=== PATIENT | female | born 1980 | race Caucasian/White ===

== ENCOUNTER 2024-12-16 09:48 | Emergency (ER) | payer OTHER, SELFPAY ==
[2024-12-16 09:49] VITALS: BP 124/82
[2024-12-16 10:04] LABS: % Eosinophils 8.8 % (0-6); % Immature Granulocytes 0.3 % (0-0.5); % Lymphocytes 17.4 % (20.5-51.1); % Monocytes 7.6 % (1.7-9.3); % Neutrophils 64.9 % (42.2-75.2); Absolute Basophils 0.1 10^3/uL (0-0.2); Absolute Eosinophils 0.7 10^3/uL (0-0.7); Absolute Lymphocytes 1.3 10^3/uL (1.2-3.4); Absolute Monocytes 0.6 10^3/uL (0.1-0.6); Absolute Neutrophils 4.8 10^3/uL (1.4-6.5); Hematocrit 40.6 % (37.0-47.0); Hemoglobin 13.6 g/dL (12.0-16.0); Mean Corp Hgb Conc. 33.5 g/dL (33.0-37.0); Mean Corpuscular Hgb 30.8 pg (27.0-31.0); Mean Corpuscular Volume 91.9 fL (81.0-99.0); Mean Platelet Volume 9.7 fL (7.4-10.4); Nucleated Red Blood Cells % 0 %; Platelet Count 200 10^3/uL (130-400); Red Blood Cell Count 4.42 10^6/uL (4.20-5.40); Red Cell Dist. Width 12.4 % (11.5-14.5); White Blood Cell Count 7.4 10^3/uL (4.8-10.8)
[2024-12-16 10:18] LABS: ALT (SGPT) 14 U/L (0-35); AST (SGOT) 20 U/L (14-36); Albumin 4.4 g/dl (3.5-5.0); Alkaline Phosphatase 38 U/L (38-126); Blood Urea Nitrogen 9 mg/dl (7-17); Calcium 8.9 mg/dl (8.4-10.2); Carbon Dioxide 25 mmol/L (22-30); Chloride 110 mmol/L (98-107); Glucose 95 mg/dl (70-99); Lipase 68 U/L (23-300); Potassium 4.4 mmol/L (3.5-5.1); Sodium 143 mmol/L (135-145); Total Bilirubin 0.4 mg/dl (0.2-1.3); Total Protein 6.8 g/dl (6.3-8.2); eGFR > 60.00
[2024-12-16 10:22] LABS: HCG, Serum Qualitative Screen Negative
[2024-12-16 11:07] VITALS: BMI 17.4
[2024-12-16] MEDS: TORADOL 30 MG IV (11:13)
[2024-12-16] MEDS: OMNIPAQUE 50 ML PO (11:13)
--- NOTE | 2024-12-16 11:19 | ED.GENMED ---
History of Present Illness
General
Chief Complaint: Abdominal Pain
Source: patient
Time Seen by Provider: 12/16/24 10:57
History of Present Illness
History of Present Illness:
44-year-old female with past medical history of hypertension, anxiety/depression, previous anorexia presenting to the emergency department for evaluation of left lower quadrant abdominal pain that woke her up from sleep this morning described to be
a constant aching/cramping sensation, nonradiating, 9 out of 10, unrelieved with a heating pad. Patient states that she has not had a bowel movement for a couple of days which is not atypical for her but is not sure if this is the reason for her
pain. She does note associated mild nausea. She is otherwise denying any other symptoms including fevers, chills, rigors, urinary symptoms, back or flank pain, vaginal bleeding or discharge. She does note a history of previous cholecystectomy but
no other surgical abdominal history. Last menstrual period was within the last 2 weeks. No known history of ovarian cysts. Social history noncontributory.
Past History
Past History
ED Past Medical History: Psychiatric (eating habits have been an issue, hx anorexia. Mood disorder: Lamictal and Celexa. Anxiety, depression) and Other (Migraines, past 9 years. had botox injection)
ED Past Surgical History: Gynecological and Other (Breast cyst)
Social History
Tobacco: Non-smoker
Alcohol: Occasional
Drug: None
Personal: Single
Living: other (As with her boyfriend's family)
Employment: Not employed
Review of Systems
Review of Systems
All Other Systems: ROS reviewed and negative except as documented in HPI and ROS
Phy Exam
Physical Exam
Physical Exam:
GENERAL: Alert , in no apparent distress but patient does appear very uncomfortable
EYE: clear conjunctiva b/l
HEAD: NCAT
ENT: o/p clr, mmm.
CARDIAC: Regular rate and rhythm .
LUNGS: Clear breath sounds bilaterally, no acute respiratory distress, no wheezes/rales/rhonchi
ABDOMEN: Soft, tender LLQ, no r/g, no cvat
NEUROLOGICAL: Alert and oriented
SKIN: Warm and dry, skin intact.
MUSCULOSKELETAL: No edema, well perfused.
PSYCH: Normal and appropriate interaction.
Scores
Heart Failure Risk
Heart Failure Risk Score: Not Applicable
Heart Score for Chest Pain Patients
STEMI patient?: Not applicable
Withdrawal Assessment of Alcohol
Withdrawal Assessment Completed?: Not applicable
Course
Orders/Labs/Results
Orders:
Orders
12/16/24 09:52
Test Result ONCE
12/16/24 09:53
Complete Blood Count/With Diff Urgent
Comprehensive Metabolic Panel Urgent
HCG, Serum Qualitative Screen Urgent
Lipase Urgent
12/16/24 11:06
CT Abd/pel W Iv And Oral Contr Urgent
Comment:
Reason For Exam: LLQ abd pain, previous choley
Iohexol [Omnipaque] See Protocol PO NOW STA
Ketorolac [Toradol] 30 mg IV NOW STA
12/16/24 12:00
Urinalysis Reflex To Culture Urgent
Date Specimen was Collected: 12/16/24
Time Specimen was Collected: 11:08
12/16/24 13:02
HYDROmorphone [Dilaudid] 0.5 mg IV NOW STA
Abnormal Lab Results
12/16/24
09:53
Lymphocytes % 17.4 L %
(20.5-51.1)
Eosinophils % 8.8 H %
(0-6)
Chloride 110 H mmol/L
(98-107)
12/16/24 09:53
12/16/24 09:53
Vital Signs
Initial and Last Documented VS:
Initial Vital Signs
Temp Pulse Resp BP Pulse Ox
98.6 F 103 16 124/82 99
12/16/24 09:49 12/16/24 09:49 12/16/24 09:49 12/16/24 09:49 12/16/24 09:49
Last Documented Vital Signs
Temp Pulse Resp BP Pulse Ox
98.6 F 98 16 121/85 98
12/16/24 09:49 12/16/24 12:56 12/16/24 12:56 12/16/24 12:56 12/16/24 12:56
MDM/Problems Addressed
Differential Diagnosis Includes:
constipation, diverticulitis, colitis, ovarian cyst, /ectopic , pancreatitis, UTI, renal/ureteral colic
MDM/Problems Addressed:
44-year-old female presenting to the emergency department for evaluation of left lower quadrant abdominal pain that began early this morning, constant, no relief with heating pad. No fevers or infectious symptoms. Appears uncomfortable on exam,
left lower quadrant is tender to palpation. Will obtain CT of the abdomen and pelvis. Toradol for pain. Labs initiated on arrival are reassuring. Negative test. Urine ordered. Disposition pending.
*Radiology
Radiology exam reviewed: radiology read reviewed
*Pulse Oximetry
Patient hypoxic: no
*Critical Care Note
Total Time (30-74mins, 75-104mins- exclusive of procedures): Not Applicable
Data Reviewed
Review of Other/Old Records Reveals: Labs
Comment
Comment:
1 PM: On reevaluation patient noted no relief with the Toradol provided. Half milligram Dilaudid ordered for further pain control. Awaiting CT scan to be performed.
Patient Management
Escalation/DeEscalation of care consider admission/obs:
Patient CT scan with large colonic stool burden reflecting constipation. Patient does report that this has been an ongoing issue. I did offer medications here however patient stated she felt comfortable being discharged home. Notes that she does
have multiple medications for constipation at home. Encouraged close follow-up with primary care provider as well as increasing fiber within diet and water-soluble foods. Patient aware of return precautions to the emergency department.
ED Attending Note
-
Portions of this chart may have been created with voice recognition software.� Occasional wrong word or��sound alike� substitutions may have occurred due to the inherent limitations of voice recognition software.
Discharge Plan
Departure
Patient Disposition: Home (Routine Discharge)
Date of Disposition: 12/16/24
Time of Disposition: 14:19
Patient with high blood pressure during this ER visit?: No
Discharge Problem:
Constipation
Instructions: Constipation, Adult (DC)
Prescriptions:
No Action
lamotrigine [Lamictal] 150 MG tablet
250 mg PO DAILY
topiramate 25 MG tablet
75 mg PO DAILY
escitalopram oxalate 20 MG tablet
20 mg PO DAILY
bupropion HCl 300 MG tablet extended release 24 hr
300 mg PO DAILY
cariprazine [Vraylar] 4.5 MG capsule
4.5 mg PO DAILY
clonazepam 1 MG tablet
2 mg PO QPM
Patient Comments:
04/05/2020-patient picked up on 03/13/2020 #105
clonazepam 1 MG tablet
0.5 mg PO DAILY@1200
Patient Comments:
04/05/2020-patient picked up on 03/13/2020 #105
clonazepam 1 MG tablet
1 mg PO DAILY
Patient Comments:
04/05/2020-patient picked up on 03/13/2020 #105
loperamide 2 MG capsule
2 mg PO Q6HPRN PRN (Reason: diarrhea) Qty: 10 0RF
Referrals:
Colt Turcios MD [Family Provider] -
Interventions
Interventions:
*Risk Screen - Suicide Last Done: 12/16/24 10:02
*General Assessment Last Done: 12/16/24 10:02
*Neglect/Abuse Screening Last Done: 12/16/24 10:02
*ED- Fall Risk Assessment Last Done: 12/16/24 10:02
*ED COVID-19 Vaccine History Last Done: 12/16/24 10:02
JS-Jrtmmr-Qkrchyeomq Assessment Last Done: 12/16/24 10:02
Discharge Date and Time
Print Language: WOLOF
[2024-12-16 12:06] LABS: Urine Albumin Negative (Neg - Trace); Urine Bilirubin Negative (Negative); Urine Character Clear (Clear); Urine Color Yellow; Urine Glucose Negative (Negative); Urine Ketone Negative (Negative); Urine Leukocyte Negative (Negative); Urine Nitrite Negative (Negative); Urine Occult Blood Negative (Negative); Urine Urobilinogen Negative (Neg - 1+)
[2024-12-16 12:56] VITALS: BP 121/85
[2024-12-16] MEDS: DILAUDID 0.5 MG IV (13:04)
[2024-12-16 14:24] VITALS: BP 125/77
== END 2024-12-16 14:30 | disposition home or self-care (01) ==
LOC: EMR 09:48
PROVIDERS: Physician Assistant Medical; EMERGENCY PHYSICIAN Student in an Organized Health Care Education/Training Program; FAMILY PHYSICIAN Internal Medicine
DX: K59.00 Constipation, unspecified (principal); R10.32 Left lower quadrant pain; R11.0 Nausea; I10 Essential (primary) hypertension; F32.A Depression, unspecified; F41.9 Anxiety disorder, unspecified; G43.909 Migraine, unspecified, not intractable, without status migrainosus; F39 Unspecified mood [affective] disorder; Z90.49 Acquired absence of other specified parts of digestive tract; Z88.2 Allergy status to sulfonamides; Z88.8 Allergy status to other drugs, medicaments and biological substances
CPT/HCPCS: 99284; 96375; 96374; 74177; 80053; 81003; 83690; 84703; 85025; Q9967

== ENCOUNTER → 2025-05-18 14:29 | Outpatient (REF) | payer OTHER, SELFPAY | LOC: WDC 14:29 | PROVIDERS: ATTENDING PHYSICIAN Student in an Organized Health Care Education/Training Program; FAMILY PHYSICIAN Internal Medicine | DX: Z12.31 Encounter for screening mammogram for malignant neoplasm of breast (principal) | CPT/HCPCS: 77063; 77067 ==

== ENCOUNTER → 2025-06-13 09:18 | Outpatient (REF) | payer OTHER, SELFPAY | LOC: RCS 09:18 | PROVIDERS: ATTENDING PHYSICIAN Physician Assistant; FAMILY PHYSICIAN Internal Medicine | DX: R00.0 Tachycardia, unspecified (principal) | CPT/HCPCS: 93225; 93226 ==

== ENCOUNTER → 2025-07-12 08:08 | Outpatient (REF) | payer OTHER, SELFPAY | LOC: HWRCS 08:08 | PROVIDERS: ATTENDING PHYSICIAN Internal Medicine Cardiovascular Disease; FAMILY PHYSICIAN Internal Medicine | DX: R00.2 Palpitations (principal); R07.2 Precordial pain; R42 Dizziness and giddiness | CPT/HCPCS: 93306 ==

== ENCOUNTER → 2025-07-16 13:23 | Outpatient (REF) | payer OTHER, SELFPAY | LOC: RCS 13:23 | PROVIDERS: ATTENDING PHYSICIAN Internal Medicine Cardiovascular Disease | DX: R07.2 Precordial pain (principal) | CPT/HCPCS: 93017 ==